=== PATIENT | male | born 1970 ===

== ENCOUNTER 2017-10-10 09:57 | Outpatient (CLI) | payer OTHER ==
[~2017-10-10] VITALS: Ht 175.3 cm; Wt 79.4 kg
[2017-10-10] MEDS ORDERED: BACTROBAN NASAL1 GM NASAL (14:15)
[2017-10-10] MEDS ORDERED: DERMOTIC20 ML OTIC (14:15)
== END 2017-10-10 10:15 | disposition home or self-care (01) ==
LOC: OFIC 805 09:57
DX: H61.23 Impacted cerumen, bilateral (principal); L03.211 Cellulitis of face; L40.8 Other psoriasis